=== PATIENT | female | born 1990 | race Caucasian/White ===

== ENCOUNTER 2021-09-09 06:04 | Emergency (ER) | payer OTHER ==
[~2021-09-09] VITALS: Ht 170.2 cm; Wt 59.0 kg
--- NOTE | 2021-09-09 06:36 | NUR ---
Dr. Mann at bedside for MSE.
[2021-09-09] MEDS: DEXAMETHASONE 4 MG TABLET PO ONE (06:47)
[2021-09-09] MEDS ORDERED: HYDR453. TP (06:48)
[2021-09-09 06:53] VITALS: BP 110/65
--- NOTE | 2021-09-09 06:53 | NUR ---
Patient discharged to home in stable condition. Written and verbal after care instructions given. Patient verbalizes understanding of instructions. Stressed follow up or return to ER for worsening s/s. Patient out of ER with steady gait, no acute signs of distress, VSS, all belongings taken.
[2021-09-09] MEDS ORDERED: DEXAMETHASONE 4 MG TABLET ONE (06:56)
== END 2021-09-09 06:54 | disposition home or self-care (01) ==
LOC: ER 06:19
DX: R21 Rash and other nonspecific skin eruption (principal); Z79.899 Other long term (current) drug therapy
CPT/HCPCS: 99282; J8540; A4663